=== PATIENT | female | born 1995 | race Caucasian/White ===

== ENCOUNTER 2016-05-04 20:59 | Emergency (ER) | payer OTHER ==
[~2016-05-04] VITALS: Ht 157.5 cm; Wt 77.4 kg
[2016-05-04 21:22] LABS: HEMATOCRIT 43.5 % (36.0-46.0); MCHC 33.6 G/DL (30.0-36.0); MCV 83.3 FL (83-99); MEAN PLAT.VOLUME 10.4 uM^3 (9.5-12.4); PLATELET COUNT 190 K/uL (156-360); RBC DIS.WIDTH-CV 13.2 % (11.8-14.6); RBC DIS.WIDTH-SD 40.1 % (39-53); RED BLOOD COUNT 5.22 M/uL (3.80-5.20); WHITE BLOOD COUNT 3.8 K/uL (4.1-10.2)
[2016-05-04 21:35] LABS: CHLORIDE 104 mEq/L (99-109); POTASSIUM 3.7 mEq/L (3.7-5.4); SODIUM 140 mEq/L (136-147)
[2016-05-04 21:37] LABS: GLUCOSE 101 mg/dL (70-99)
[2016-05-04 21:39] LABS: ANION GAP 12 MEQ/L (2-14); TOTAL BILIRUBIN 0.6 mg/dL (0.0-1.0)
[2016-05-04 21:41] LABS: ALKALINE PHOSPHATASE 56 IU/L (3-129); GFR ESTIMATE (CALCULATED) > 59 mL/min/
[2016-05-04 21:42] LABS: UREA NITROGEN (BUN) 12 mg/dL (9-23)
[2016-05-04 21:51] LABS: QUANTITATIVE HCG < 4.0 MIU/ML
[2016-05-05] MEDS ORDERED: ZOFRAN ODT4 MG PO (00:29)
[2016-05-05 01:20] LABS: ADD MIUA? YES; BILIRUBIN NEGATIVE; BLOOD NEGATIVE; COLOR AMBER ((YELLOW)); GLUCOSE (STRIP) NEGATIVE; KETONES 20; LEUKOCYTES LARGE; NITRITE NEGATIVE; PROTEIN (STRIP) 100; SPECIFIC GRAVITY 1.027 (1.000-1.030); UROBILINOGEN 0.2 MG/DL (0.2-1.0)
[2016-05-05 01:41] VITALS: BP 136/91
[2016-05-05 01:59] LABS: EPITHELIAL CELLS 2+ /HPF; RED BLOOD CELLS 0-5 /HPF (0-5); WHITE BLOOD CELLS 15-20 /HPF (0-5)
[2016-05-05 02:00] LABS: BACTERIA 2+ /HPF; CASTS PRESENT /LPF; HYALINE CASTS 0-5 /LPF; MUCUS NONE SEEN /LPF; UCUL ADDED? YES
== END 2016-05-05 01:42 | disposition home or self-care (01) ==
LOC: EME 20:59
DX: R11.2 Nausea with vomiting, unspecified (principal); N39.0 Urinary tract infection, site not specified; Z88.2 Allergy status to sulfonamides; Z88.0 Allergy status to penicillin
CPT/HCPCS: 80053; 81003; 84702; 85027; 87086; 99281; 99284